=== PATIENT | female | born 1970 | race Caucasian/White ===

== ENCOUNTER → 2017-09-06 | Outpatient (CLI) | payer OTHER | LOC: M SLEEP 19:50 | DX: R06.83 Snoring (principal) | CPT/HCPCS: 95810 ==

== ENCOUNTER → 2020-11-21 | Outpatient (CLI) | payer OTHER ==
--- NOTE | 2020-11-21 16:44 | REP ---
INDICATION: IRREGULAR PERIODS. COMPARISON: None. TECHNIQUE: Transabdominal and transvaginal scanning were performed. FINDINGS: Uterine dimensions are enlarged at 11.2 x 5.5 x 6.2 cm. Endometrial echo is 2.2 cm thick and centrally placed. No free fluid is seen in the cul-de-sac. Visualized bladder mills are smooth. Nabothian cysts are seen within the cervix. Endometrial echo is abnormally thickened if patient is postmenopausal. The right ovary has dimensions of 4.9 x 3.6 x 4.1 cm. It's Doppler flow is normal with a resistive index of 0.61. There is a 3.6 cm x 3.1 x 3.6 cm cyst in the right ovary which appears anechoic. The left ovary dimensions are normal as well at 3.0 x 1.3 x 2.3 cm. It's Doppler flow was normal with resistive index of 0.70. IMPRESSION: Enlarged uterus. Thickened endometrium. 3.6 cm simple cyst right ovary.. <Electronically signed by Stef Herrera > 11/21/20 9012
== END ==
LOC: M WHC 14:50
PROVIDERS: ATTEND Nurse Practitioner Adult Health
DX: N92.6 Irregular menstruation, unspecified (principal); N83.201 Unspecified ovarian cyst, right side; R93.89 Abnormal findings on diagnostic imaging of other specified body structures

== ENCOUNTER → 2021-11-11 | Outpatient (REF) | payer OTHER | LOC: M LAB REF 16:26 | PROVIDERS: ATTEND Nurse Practitioner Adult Health | DX: D50.9 Iron deficiency anemia, unspecified (principal) ==

== ENCOUNTER → 2022-08-11 | Outpatient (CLI) | payer BC | LOC: M WUC 09:32 | PROVIDERS: ATTEND Nurse Practitioner Family | DX: M25.571 Pain in right ankle and joints of right foot (principal) ==

== ENCOUNTER → 2022-11-01 | Outpatient (REF) | payer BC | LOC: M LAB REF 16:36 | PROVIDERS: ATTEND Nurse Practitioner Adult Health | DX: R41.3 Other amnesia (principal) ==

== ENCOUNTER → 2023-10-12 | Outpatient (CLI) | payer BC | LOC: M WHC 10:32 | PROVIDERS: ATTEND Physician Assistant Medical | DX: Z12.31 Encounter for screening mammogram for malignant neoplasm of breast (principal) ==

== ENCOUNTER → 2024-11-07 | Outpatient (CLI) | payer BC | LOC: M WHC 15:05 | PROVIDERS: ATTEND Physician Assistant Medical | DX: Z12.31 Encounter for screening mammogram for malignant neoplasm of breast (principal); R92.323 Mammographic fibroglandular density, bilateral breasts ==

== ENCOUNTER → 2024-12-31 | Outpatient (CLI) | payer BC | LOC: M WHC 07:17 | PROVIDERS: ATTEND Physician Assistant Medical | DX: R74.01 Elevation of levels of liver transaminase levels (principal); F43.0 Acute stress reaction; K76.0 Fatty (change of) liver, not elsewhere classified; K80.20 Calculus of gallbladder without cholecystitis without obstruction; N20.0 Calculus of kidney ==

== ENCOUNTER → 2025-01-02 | Outpatient (REF) | payer BC ==
[2025-01-02 15:41] LABS: HEPATITIS C VIRUS ABY INDEX < 0.02 INDEX (<0.8)
== END ==
LOC: M LAB REF 11:53
PROVIDERS: ATTEND Internal Medicine
DX: R74.01 Elevation of levels of liver transaminase levels (principal)